=== PATIENT | male | born 1950 | race Hispanic/Latino ===

== ENCOUNTER 2021-05-09 06:47 | Outpatient (CLI) | payer MEDICARE | END 2021-05-09 06:48 | disposition home or self-care (01) | LOC: BICULT 06:47 | PROVIDERS: ATTEND Nurse Practitioner Family | DX: R10.13 Epigastric pain (principal) | CPT/HCPCS: 76700 ==

== ENCOUNTER 2022-04-06 09:14 | Outpatient (CLI) | payer MEDICARE | END 2022-04-06 09:15 | disposition home or self-care (01) | LOC: RAD-FRANK 09:14 | PROVIDERS: ATTEND Nurse Practitioner Family | DX: Z77.090 Contact with and (suspected) exposure to asbestos (principal); R91.8 Other nonspecific abnormal finding of lung field | CPT/HCPCS: 71046 ==

== ENCOUNTER 2022-04-07 06:57 | Outpatient (CLI) | payer MEDICARE | END 2022-04-07 06:58 | disposition home or self-care (01) | LOC: BICULT 06:57 | PROVIDERS: ATTEND Nurse Practitioner Family | DX: R10.13 Epigastric pain (principal) | CPT/HCPCS: 76700 ==